=== PATIENT | female | born 1965 | race Caucasian/White ===

== ENCOUNTER 2018-05-22 14:17 | Inpatient (IN) | payer OTHER ==
[~2018-05-22] VITALS: Ht 160 cm; Wt 105.4 kg
[2018-05-22] MEDS ORDERED: Isovue-300 100ml vial INJ PRN (14:45)
[2018-05-22] MEDS ORDERED: Vancomycin 1.5gm/D5W 250ml 250 ML IVPB ONE (14:45)
--- NOTE | 2018-05-22 14:59 | Emergency Room Report ---
History of Present Illness General Chief Complaint: Skin Rash/Abscess Source: Patient Present Illness HPI 52-year-old female presents ED for evaluation. Patient was referred here by PMD Dr. Harris. Patient states there is facial swelling and pain for last 2 days. States there was a small pimple on her face that started spreading. States pain is dull, 6 out of 10, nonradiating. Denies fevers or chills. Denies headache. Patient states that approximately one month ago she had surgery to her neck. Done at outpatient center. Patient had follow-up today with the surgeon area states there is some minimal redness at the surgical site. Was started on Cipro. Denies neck stiffness. No other aggravating relieving factors. Denies any other associated symptoms Allergies: Coded Allergies: ADHESIVE TAPE (Verified Allergy, Unknown, 05/22/18) CODEINE (Verified Allergy, Unknown, 05/22/18) LEVOFLOXACIN (Verified Allergy, Unknown, 05/22/18) MORPHINE (Verified Allergy, Unknown, 05/22/18) Patient History Past Medical History: none Past Surgical History: none Pertinent Family History: none Social History: Denies: smoking, alcohol use, drug use Now: No Immunizations: UTD Reviewed Nursing Documentation: PMH: Agreed; PSxH: Agreed Nursing Documentation-PMH Hx Seizures: Yes Review of Systems All Other Systems: negative except mentioned in HPI Physical Exam Vital Signs Date Time Temp Pulse Resp B/P (MAP) Pulse Ox O2 Delivery O2 Flow Rate FiO2 05/22/18 14:21 98.5 111 20 118/78 95 Room Air 98.4 Sp02 EP Interpretation: reviewed, normal General Appearance: no apparent distress, alert, GCS 15, non-toxic Head: normocephalic Eyes: bilateral eye normal inspection, bilateral eye PERRL ENT: hearing grossly normal, normal pharynx, no angioedema, normal voice, TMs + canals normal Neck: full range of motion, supple, no meningismus, no bony tend, supple/symm/ no masses, other - surgical site anterior neck minimal erythema Respiratory: chest non-tender, lungs clear, normal breath sounds, speaking full sentences Cardiovascular #1: regular rate, rhythm, no edema Gastrointestinal: normal inspection Rectal: deferred Genitourinary: no CVA tenderness Musculoskeletal: normal inspection Neurologic: alert, oriented x3, responsive, motor strength/tone normal, sensory intact, speech normal Psychiatric: judgement/insight normal, memory normal, mood/affect normal, no suicidal/homicidal ideation Skin: other - erythema/induration to upper lip, R side of face. no fluctuance or discharge Lymphatic: normal inspection Medical Decision Making Diagnostic Impression: Primary Impression: Facial cellulitis ER Course Hospital Course 52-year-old female presents to ED with redness, pain, swelling to face Differential diagnoses include: Cellulitis, abscess, rash. Clinical course Patient placed on stretcher. After initial history and physical I ordered labs , blood Cx, UA, IVFs,CT Facial Bones w/ contrast labs reviewed - no leukocytosis, Hb/Hct stable, no electrolyte abnormalities. CT shows evidence of cellulitis, no abscess antibiotics given. Case discussed with Dr Harris and he agreed to accept the patient to his service for further care and support Diagnosis - facial cellulitis Patient admitted to floor in serious condition Labs Test 05/22/18 15:20 White Blood Count 8.3 K/UL (4.8-10.8) Red Blood Count 4.75 M/UL (4.20-5.40) Hemoglobin 12.1 G/DL (12.0-16.0) Hematocrit 38.9 % (37.0-47.0) Mean Corpuscular Volume 82 FL (80-99) Mean Corpuscular Hemoglobin 25.4 PG (27.0-31.0) Mean Corpuscular Hemoglobin Concent 31.1 G/DL (32.0-36.0) Red Cell Distribution Width 14.4 % (11.6-14.8) Platelet Count 173 K/UL (150-450) Mean Platelet Volume 7.1 FL (6.5-10.1) Neutrophils (%) (Auto) 63.0 % (45.0-75.0) Lymphocytes (%) (Auto) 26.8 % (20.0-45.0) Monocytes (%) (Auto) 5.5 % (1.0-10.0) Eosinophils (%) (Auto) 4.1 % (0.0-3.0) Basophils (%) (Auto) 0.6 % (0.0-2.0) Sodium Level 137 MMOL/L (136-145) Potassium Level 3.7 MMOL/L (3.5-5.1) Chloride Level 101 MMOL/L (98-107) Carbon Dioxide Level 26 MMOL/L (21-32) Anion Gap 10 mmol/L (5-15) Blood Urea Nitrogen 10 mg/dL (7-18) Creatinine 0.7 MG/DL (0.55-1.30) Estimat Glomerular Filtration Rate > 60 mL/min (>60) Glucose Level 102 MG/DL (74-106) Lactic Acid Level 0.80 mmol/L (0.4-2.0) Calcium Level 9.1 MG/DL (8.5-10.1) Total Bilirubin 0.4 MG/DL (0.2-1.0) Aspartate Amino Transf (AST/SGOT) 22 U/L (15-37) Alanine Aminotransferase (ALT/SGPT) 22 U/L (12-78) Alkaline Phosphatase 92 U/L (46-116) Total Protein 8.4 G/DL (6.4-8.2) Albumin 3.6 G/DL (3.4-5.0) Globulin 4.8 g/dL Albumin/Globulin Ratio 0.8 (1.0-2.7) CT/MRI/US Diagnostic Results CT/MRI/US Diagnostic Results : Imaging Test Ordered: CT Facial Bones Impression Findings: There is a enhancement and the subcutaneous infiltration in the region of the upper lip. There is no abscess or defined fluid collection identified. Osseous structures appear normal. Paranasal sinuses are clear. Mastoids are clear bilaterally. Orbits are unremarkable. Last Vital Signs Date Time Temp Pulse Resp B/P (MAP) Pulse Ox O2 Delivery O2 Flow Rate FiO2 05/22/18 14:21 98.5 111 20 118/78 95 Room Air 98.4 Status: improved Disposition: ADMITTED INPATIENT Condition: Serious Obdulio Ngo MD May 22, 2018 14:59
[2018-05-22 15:00] VITALS: BP 114/82
[2018-05-22 15:50] LABS: BASOPHILS % (AUTO) 0.6 % (0.0-2.0); EOSINOPHILS % (AUTO) 4.1 % (0.0-3.0); HEMATOCRIT 38.9 % (37.0-47.0); HEMOGLOBIN 12.1 G/DL (12.0-16.0); LYMPHOCYTES % (AUTO) 26.8 % (20.0-45.0); MEAN CORPUSCULAR VOLUME 82 FL (80-99); MONOCYTES % (AUTO) 5.5 % (1.0-10.0); PLATELET COUNT 173 K/UL (150-450); RED BLOOD COUNT 4.75 M/UL (4.20-5.40); RED CELL DISTRIBUTION WIDTH 14.4 % (11.6-14.8); WHITE BLOOD COUNT 8.3 K/UL (4.8-10.8)
[2018-05-22 16:00] LABS: ANION GAP 10 mmol/L (5-15); BLOOD UREA NITROGEN 10 mg/dL (7-18); CALCIUM 9.1 MG/DL (8.5-10.1); CARBON DIOXIDE 26 MMOL/L (21-32); CHLORIDE 101 MMOL/L (98-107); CREATININE 0.7 MG/DL (0.55-1.30); POTASSIUM 3.7 MMOL/L (3.5-5.1); SODIUM 137 MMOL/L (136-145)
[2018-05-22 16:04] LABS: ALANINE AMINOTRANSFERASE 22 U/L (12-78); ALBUMIN 3.6 G/DL (3.4-5.0); ALBUMIN/GLOBULIN RATIO 0.8 (1.0-2.7); ALKALINE PHOSPHATASE 92 U/L (46-116); ASPARTATE AMINO TRANSFERASE 22 U/L (15-37); BILIRUBIN,TOTAL 0.4 MG/DL (0.2-1.0)
[2018-05-22] MEDS ORDERED: DiphenhydrAMINE 50mg/ml Inj IVP ONE (16:15)
[2018-05-22] MEDS ORDERED: Morphine Sulfate 4mg/ml Inj (IV/IM USE ONLY) IVP ONE (16:15)
--- NOTE | 2018-05-22 16:47 | Diagnostic Imaging Report ---
Indication: Facial swelling and pain. Concern for infection/abscess Technique: Continuous helical transaxial imaging of the maxillofacial structures obtained after intravenous contrast administration. Coronal 2-D reformats were also obtained. Study obtained in a Siemens sensation [address] Total Dose length Product (DLP): 614.[address] Dose Index Volume (CTDIvol): 28.19 mGy Comparison: None Findings: There is a enhancement and the subcutaneous infiltration in the region of the upper lip. There is no abscess or defined fluid collection identified. Osseous structures appear normal. Paranasal sinuses are clear. Mastoids are clear bilaterally. Orbits are unremarkable. IMPRESSION: Soft tissue swelling and enhancement involving the upper lip consistent with cellulitis. No abscess.
[2018-05-22] MEDS ORDERED: KEPPRA500 M4 ORAL (16:57)
[2018-05-22 17:13] VITALS: BP 109/75
[2018-05-22] MEDS ORDERED: Tylenol #3 tab (300mg/30mg) ORAL PRN (17:45)
[2018-05-22] MEDS ORDERED: KEPPRA100 MG/1 M IV (17:59)
[2018-05-22] MEDS ORDERED: PANTOPRAZOLE SO40 MG ORAL (17:59)
[2018-05-22] MEDS ORDERED: ACID CONTROL150 MG ORAL (17:59)
[2018-05-22] MEDS ORDERED: SINGULAIR10 MG ORAL (17:59)
[2018-05-22] MEDS ORDERED: SYMBICORT2 PUFF1 INH (17:59)
[2018-05-22] MEDS ORDERED: CARVEDILOL6.25 MG ORAL (17:59)
[2018-05-22] MEDS ORDERED: KEPPRA XR500 MG ORAL (17:59)
[2018-05-22] MEDS ORDERED: GABAPENTIN600 MG ORAL (17:59)
[2018-05-22] MEDS ORDERED: ZOLOFT50 MG ORAL (17:59)
[2018-05-22] MEDS ORDERED: valACYclovir HCL 500mg tab ORAL SCH (18:00)
[2018-05-22] MEDS ORDERED: traMADol 50mg tab ORAL PRN ×2 (18:50→21:36)
[2018-05-22 20:00] VITALS: BP 105/70
[2018-05-22] MEDS: Piperacillin/Tazobactam 3.375 GM in D5W 110 ML IVPB SCH (20:00)
[2018-05-22] MEDS ORDERED: Carvedilol 6.25mg Tab ORAL SCH (20:00)
[2018-05-22] MEDS: valACYclovir HCL 500mg tab ORAL SCH (20:45)
[2018-05-22] MEDS: Montelukast 10mg tablet ORAL SCH (20:45)
[2018-05-22] MEDS: Heparin 5000 units/ml inj SUBQ SCH (20:51)
[2018-05-22] MEDS ORDERED: HYDROcodone/Acetamin 10/325 tab ORAL PRN (21:30)
[2018-05-22] MEDS: HYDROcodone/Acetamin 10/325 tab ORAL PRN (21:52)
[2018-05-23] VITALS: BP 104/64
[2018-05-23] MEDS: HYDROcodone/Acetamin 10/325 tab ORAL PRN ×5 (02:20→20:35)
[2018-05-23] MEDS ORDERED: Vancomycin 1gm/D5W 275ml IVPB SCH ×2 (03:30)
[2018-05-23 04:00] VITALS: BP 92/76
[2018-05-23] MEDS: Piperacillin/Tazobactam 3.375 GM in D5W 110 ML IVPB SCH ×2 (04:00→12:41)
[2018-05-23 08:00] VITALS: BP 107/81
[2018-05-23] MEDS: Carvedilol 6.25mg Tab ORAL SCH ×2 (08:51→17:40)
[2018-05-23] MEDS: valACYclovir HCL 500mg tab ORAL SCH (08:51)
[2018-05-23] MEDS: Sertraline 50mg tab ORAL SCH (08:51)
[2018-05-23] MEDS: Heparin 5000 units/ml inj SUBQ SCH ×2 (08:57→20:37)
[2018-05-23 11:52] VITALS: BP 103/72
--- NOTE | 2018-05-23 13:49 | History and Physical ---
History of Present Illness General Date patient seen: May 23, 2018 Reason for Hospitalization: Skin Rash/Abscess Present Illness HPI this is anunfortuante female s/p ACDDF doing ok came to office yesterday had facialswelling and abcess. she was send to ER to be eval and subsequently was admmited for further eval She has facial abcess had ct no abcess she is slihgtly better she wa admmited due to the fact that she has recent aCDF adn at risk of seeding the hardware. PMH: COPD AORTIC BICUSPID VALVE s/p valve replacement on off anticoagulation obesity polyarthraogai cervical radiculitis s/p fusion gerd pre diabetes with hgba1c 6.2 ? pseudo seizure PSH: blasdder ligft cholecystectomy hysterectomy left knee surgery Allergies: Coded Allergies: VANCOMYCIN (Verified Allergy, Intermediate, Itching, 05/23/18) ADHESIVE TAPE (Verified Allergy, Unknown, 05/22/18) CODEINE (Verified Allergy, Unknown, 05/22/18) LEVOFLOXACIN (Verified Allergy, Unknown, 05/22/18) MORPHINE (Verified Allergy, Unknown, 05/22/18) Medication History Scheduled Budesonide/Formoterol Fumarate (Symbicort 160-4.5 Mcg Inhaler), 2 PUFFS INH BID, (Reported) Carvedilol* (Carvedilol*), 6.25 MG ORAL EVERY 12 HOURS, (Reported) Gabapentin* (Gabapentin*), 600 MG ORAL FOUR TIMES A DAY, (Reported) Levetiracetam (Keppra), 500 MG ORAL EVERY 12 HOURS, (Reported) Levetiracetam (Keppra Xr), 500 MG ORAL DAILY, (Reported) Levetiracetam (Keppra), 500 MG IV BID, (Reported) Montelukast Sodium* (Singulair*), 10 MG ORAL HS, (Reported) Pantoprazole* (Pantoprazole*), 40 MG ORAL DAILY, (Reported) Ranitidine Hcl* (Acid Control*), 300 MG ORAL BEDTIME, (Reported) Sertraline Hcl* (Zoloft*), 50 MG ORAL DAILY, (Reported) Patient History History Provided By: Patient Healthcare decision maker N Resuscitation status Full Code Advanced Directive on File Review of Systems Constitutional: Reports: weakness Eye: Reports: no symptoms Cardiovascular: Reports: no symptoms Musculoskeletal: Reports: other - arthralgai Physical Exam General Appearance: other - sitting on the bed HEENT: normocephalic, atraumatic, other - upper lip swelling Neck: other - wellhealing scar Respiratory/Chest: lungs clear Cardiovascular/Chest: normal rate, regular rhythm, no JVD Abdomen: soft Extremities: non-tender Last 24 Hour Vital Signs Date Time Temp Pulse Resp B/P (MAP) Pulse Ox O2 Delivery O2 Flow Rate FiO2 05/23/18 11:52 98.2 105 20 103/72 (82) 93 98.2 05/23/18 11:09 98.5 05/23/18 10:39 98.5 05/23/18 10:35 108 20 96 Room Air 21 05/23/18 10:34 108 20 96 Room Air 21 05/23/18 09:00 Nasal Cannula 2.0 05/23/18 08:51 105 107/81 05/23/18 08:00 98.5 105 18 107/81 (90) 95 98.5 05/23/18 04:00 97.9 101 20 92/76 (81) 94 97.9 05/23/18 00:00 98.5 108 18 104/64 (77) 95 98.5 05/22/18 21:00 Room Air 05/22/18 20:46 97 109/75 05/22/18 20:00 98.1 109 20 105/70 (82) 95 98.1 05/22/18 17:13 98.6 97 19 109/75 (86) 97 98.6 05/22/18 16:54 98.4 96 14 132/66 97 Room Air 209.1 05/22/18 16:36 Room Air 05/22/18 16:12 98.4 05/22/18 15:00 98.4 92 15 114/82 96 Room Air 98.4 05/22/18 14:21 98.5 111 20 118/78 95 Room Air 98.4 Intake and Output 05/22/18 05/23/18 19:00 07:00 Intake Total 360 ml Balance 360 ml Intake Oral 360 ml # Voids 3 Laboratory Tests Test 05/22/18 15:20 White Blood Count 8.3 K/UL (4.8-10.8) Red Blood Count 4.75 M/UL (4.20-5.40) Hemoglobin 12.1 G/DL (12.0-16.0) Hematocrit 38.9 % (37.0-47.0) Mean Corpuscular Volume 82 FL (80-99) Mean Corpuscular Hemoglobin 25.4 PG (27.0-31.0) L Mean Corpuscular Hemoglobin Concent 31.1 G/DL (32.0-36.0) L Red Cell Distribution Width 14.4 % (11.6-14.8) Platelet Count 173 K/UL (150-450) Mean Platelet Volume 7.1 FL (6.5-10.1) Neutrophils (%) (Auto) 63.0 % (45.0-75.0) Lymphocytes (%) (Auto) 26.8 % (20.0-45.0) Monocytes (%) (Auto) 5.5 % (1.0-10.0) Eosinophils (%) (Auto) 4.1 % (0.0-3.0) H Basophils (%) (Auto) 0.6 % (0.0-2.0) Sodium Level 137 MMOL/L (136-145) Potassium Level 3.7 MMOL/L (3.5-5.1) Chloride Level 101 MMOL/L (98-107) Carbon Dioxide Level 26 MMOL/L (21-32) Anion Gap 10 mmol/L (5-15) Blood Urea Nitrogen 10 mg/dL (7-18) Creatinine 0.7 MG/DL (0.55-1.30) Estimat Glomerular Filtration Rate > 60 mL/min (>60) Glucose Level 102 MG/DL (74-106) Lactic Acid Level 0.80 mmol/L (0.4-2.0) Calcium Level 9.1 MG/DL (8.5-10.1) Total Bilirubin 0.4 MG/DL (0.2-1.0) Aspartate Amino Transf (AST/SGOT) 22 U/L (15-37) Alanine Aminotransferase (ALT/SGPT) 22 U/L (12-78) Alkaline Phosphatase 92 U/L (46-116) Total Protein 8.4 G/DL (6.4-8.2) H Albumin 3.6 G/DL (3.4-5.0) Globulin 4.8 g/dL Albumin/Globulin Ratio 0.8 (1.0-2.7) L Height (Feet): 5 Height (Inches): 3.00 Weight (Pounds): 225 Medications Current Medications Medications (Trade) Dose Ordered Sig/Yessica Route PRN Reason Start Time Stop Time Status Last Admin Dose Admin Acetaminophen (Tylenol) 650 mg Q6H PRN ORAL Mild Pain/Temp > 100.5 05/22/18 17:52 06/21/18 17:51 05/22/18 20:53 Acetaminophen/ Hydrocodone Bitart ([place] 10/325) 1 tab Q4H PRN ORAL Severe Pain (Pain Scale 7-10) 05/22/18 21:37 05/29/18 21:36 05/23/18 10:39 Budesonide/ Formoterol Fumarate (Symbicort 160/ 4.5) 2 puff BID INH 05/22/18 20:00 06/21/18 19:59 05/23/18 10:32 Carvedilol (Coreg) 6.25 mg BIDPC ORAL 05/23/18 09:00 06/22/18 08:59 05/23/18 08:51 Diphenhydramine HCl (Benadryl) 50 mg Q6H PRN ORAL Itching 05/23/18 06:00 06/22/18 05:59 05/23/18 12:40 Gabapentin (Neurontin) 600 mg FOUR TIMES A DAY ORAL 05/22/18 18:00 06/21/18 17:59 05/23/18 12:40 Heparin Sodium (Porcine) (Heparin 5000 units/ml) 5,000 units EVERY 12 HOURS SUBQ 05/22/18 21:00 06/21/18 20:59 05/23/18 08:57 Iopamidol (Isovue-300 100ml) 100 ml NOW PRN INJ Radiology Procedure 05/22/18 14:45 05/24/18 14:45 Levetiracetam (Keppra) 500 mg EVERY 12 HOURS ORAL 05/22/18 21:00 06/21/18 20:59 05/23/18 08:51 Montelukast Sodium (Singulair) 10 mg BEDTIME ORAL 05/22/18 21:00 06/21/18 20:59 05/22/18 20:45 Pantoprazole (Protonix) 40 mg DAILY ORAL 05/23/18 09:00 06/22/18 08:59 05/23/18 08:51 Piperacillin Sod/ Tazobactam Sod 3.375 gm/Dextrose 110 ml @ 27.5 mls/hr Q8H IVPB 05/22/18 20:00 05/29/18 19:59 05/23/18 12:41 Sertraline HCl (Zoloft) 50 mg DAILY ORAL 05/23/18 09:00 06/22/18 08:59 05/23/18 08:51 Tramadol HCl (Ultram) 50 mg Q6H PRN ORAL Moderate Pain (Pain Scale 4-6) 05/22/18 21:36 05/29/18 21:35 Valacyclovir HCl (Valtrex) 1,000 mg Q12HR ORAL 05/22/18 21:00 06/21/18 20:59 05/23/18 08:51 Assessment/Plan Status Narrative FACICAL CELLULISTIS no abces in the ct receent acdf historyof valvular heart disease Assessment/Plan antribitoic given ? redmen syndrome with vanco will get id to recommend empiric broad spectrum antibiotic pt ot eval and follow has aortic valve replced with infeciton will get cardiology to seeher. Faustino Harris MD May 23, 2018 13:49
--- NOTE | 2018-05-23 15:36 | Consultation ---
Consult Note Consult Note # [id number] Parviz So MD May 23, 2018 15:36
[2018-05-23 15:39] VITALS: BP 110/71
--- NOTE | 2018-05-23 15:44 | Consultation ---
Consult Note Consult Note Chart reviewed, Patient examined. Full note to follow. Imp: 1. H/O Bicuspid aortic valve, s/p AVR (Bioprosthetic) in 2017 2. S/P R knee surgery 2016 3. S/p C spine surgery 04/21/18 4. Obesity 5. Open wound of the C spine surgery with drainage 6. Upper lip and face cellulitis 7. Allergic reaction to Vanco Plan: Wound culture IV ABx as per ID 2D Echo /Doppler to assess aortic valve and r/o vegetation Monitor progress of cellulitis. Mark Bee MD May 23, 2018 15:43
[2018-05-23] MEDS: DAPTOmycin 400 MG in NS 55 ML IV SCH (16:54)
[2018-05-23 20:24] VITALS: BP 123/82
[2018-05-23] MEDS: Montelukast 10mg tablet ORAL SCH (20:35)
[2018-05-24] VITALS (9 sets, daily range): BP systolic 103–130; BP diastolic 69–85
--- NOTE | 2018-05-24 01:00 | Consultation ---
DATE OF CONSULTATION: 05/23/2018 INFECTIOUS DISEASE CONSULTATION CONSULTING PHYSICIAN: Parviz So M.D. REQUESTING PHYSICIAN: Faustino Harris M.D. REASON FOR CONSULTATION: Facial cellulitis. HISTORY OF PRESENT ILLNESS: The patient is a 52-year-old female with a recent history of anterior approach diskectomy of the neck about a month ago, who was admitted to this medical center for swelling and tenderness of upper lip. The patient noticed a pimple in the area that squeezes and few days later this got worse with swelling and tenderness to the area. The patient is admitted with inpatient facial cellulitis/abscess. Infectious Disease consultation has been requested for further evaluation of the patient and antibiotic management. PAST MEDICAL HISTORY: 1. COPD. 2. History of neck surgery, anterior approach neck discectomy. 3. History of aortic bicuspid valve replacement. 4. Obesity. 5. History of diabetes. 6. History of cholecystectomy. 7. History of hysterectomy. 8. History of left knee surgery. MEDICATIONS: IV Zosyn. ALLERGIES: Adhesive tape, codeine, Levaquin, morphine, and vancomycin. FAMILY HISTORY: Not contributing. SOCIAL HISTORY: No history of alcohol or drug abuse. REVIEW OF SYSTEMS: A 10-point review was done, except what was mentioned above has been negative. PHYSICAL EXAMINATION: VITAL SIGNS: Temperature 98.2, blood pressure 133/72, pulse 86, and respiratory rate 18. HEENT: No pale conjunctivae. No icterus. Mouth, the patient has swelling over the upper lip, tender, no purulent discharge. NECK: No lymphadenopathy. Incision site is healing. CHEST: Bilateral air entry. HEART: S1 and S2. ABDOMEN: Soft and nontender. EXTREMITIES: No cyanosis at this time. NEUROLOGIC: Awake. LABORATORY AND DIAGNOSTIC DATA: WBC 7.3, hemoglobin 12, and platelets of 173,000. BUN 10 and creatinine 0.7. ALT and AST are unremarkable. Facial bone CT, soft tissue enhancement involving the upper lip consistent with cellulitis. No discrete abscess. ASSESSMENT: The patient is a 52-year-old female with multiple medical problems, who has, 1. Facial cellulitis due to small upper lip abscess (most likely due to Staphylococcus). 2. Afebrile. 3. Normal white blood cells. PLAN: 1. We will start the patient on intravenous daptomycin (the patient has allergy to daptomycin and has ). 2. Hold Zosyn (doubt gram negatives has a role). 3. Monitor CBC and BMP. 4. Monitor the patient's clinical improvement. 5. Monitor blood culture. 6. Based on the patient's clinical course and laboratories, we will do further recommendations. Thank you, Dr. Harris, for allowing me to participate in the care of this patient. I will follow the patient with you during this hospitalization. Parviz So M.D. DR: CHAUNCEY JOB#: [id number] CC:
[2018-05-24] MEDS: HYDROcodone/Acetamin 10/325 tab ORAL PRN ×5 (01:25→19:37)
[2018-05-24] MEDS: Carvedilol 6.25mg Tab ORAL SCH ×2 (08:34→18:13)
[2018-05-24] MEDS: Sertraline 50mg tab ORAL SCH (08:34)
[2018-05-24] MEDS: Heparin 5000 units/ml inj SUBQ SCH ×2 (08:37→21:04)
[2018-05-24] MEDS ORDERED: LORazepam Inj 2mg/ml 1ml IV PRN ×2 (15:00→18:45)
--- NOTE | 2018-05-24 17:09 | Infectious Diseases Prog Note ---
Assessment/Plan Assessment/Plan A: The patient is a 52-year-old female with a Facial cellulitis due to small upper lip abscess (most likely due to Staphylococcus) Neck Wnd Cx : Staph A ( Colonizer) Afebrile. Normal white blood cells. COPD. History of neck surgery, anterior approach neck discectomy. History of aortic bicuspid valve replacement. Obesity. History of diabetes. History of cholecystectomy. History of hysterectomy. History of left knee surgery. PLAN: Cont intravenous daptomycin d# 2 (allergy to vancomycin and DDI : Zyvox) Sp Zosyn d# 1 Monitor CBC and BMP Monitor the patient's clinical improvement. Monitor blood culture. may need I/D if abscess progresses Subjective Allergies: Coded Allergies: VANCOMYCIN (Verified Allergy, Intermediate, Itching, 05/23/18) ADHESIVE TAPE (Verified Allergy, Unknown, 05/22/18) CODEINE (Verified Allergy, Unknown, 05/22/18) LEVOFLOXACIN (Verified Allergy, Unknown, 05/22/18) MORPHINE (Verified Allergy, Unknown, 05/22/18) Subjective Afebrile Objective Vital Signs Last 24 Hour Vital Signs Date Time Temp Pulse Resp B/P (MAP) Pulse Ox O2 Delivery O2 Flow Rate FiO2 05/24/18 16:00 97.6 105 18 115/85 (95) 95 05/24/18 15:46 97.6 05/24/18 14:30 103 20 110/79 (89) 97 05/24/18 14:25 84 18 105/73 (84) 97 05/24/18 14:18 82 16 103/71 (82) 98 05/24/18 12:00 97.1 99 18 122/78 (93) 94 97.1 05/24/18 10:47 98.4 05/24/18 09:00 Room Air 05/24/18 08:34 100 110/69 05/24/18 08:24 83 18 99 Room Air 21 05/24/18 08:21 83 16 99 Room Air 21 05/24/18 08:00 98.4 100 18 110/69 (83) 93 98.4 05/24/18 04:00 98.4 84 18 130/80 (97) 95 98.4 05/24/18 00:28 98.1 78 18 127/77 (94) 95 98.1 05/23/18 21:00 Nasal Cannula 2.0 10/23/18 20:24 98.3 80 17 123/82 (96) 96 98.3 05/23/18 19:27 114 20 95 Room Air 21 05/23/18 19:25 111 18 93 Room Air 21 05/23/18 17:40 91 110/71 Height (Feet): 5 Height (Inches): 3.00 Weight (Pounds): 232 HEENT: anicteric, other - upper lip abscess +, no drainage Respiratory/Chest: no respiratory distress Cardiovascular: regular rhythm Microbiology Date/Time Source Procedure Growth Status 05/22/18 15:35 Blood Blood Culture - Preliminary NO GROWTH AFTER 24 HOURS Resulted 05/22/18 15:20 Blood Blood Culture - Preliminary NO GROWTH AFTER 24 HOURS Resulted 05/22/18 20:10 Nasal Nares MRSA Culture - Final Staphylococcus Aureus - Mrsa Complete 05/23/18 15:31 Neck Gram Stain - Final Resulted 05/23/18 15:31 Wound Culture - Preliminary Staphylococcus Aureus Resulted 05/22/18 20:10 Rectum VRE Culture Pending Resulted 05/22/18 20:10 Rectum - Preliminary Resulted Current Medications Medications (Trade) Dose Ordered Sig/Yessica Route PRN Reason Start Time Stop Time Status Last Admin Dose Admin Acetaminophen (Tylenol) 650 mg Q6H PRN ORAL Mild Pain/Temp > 100.5 05/22/18 17:52 06/21/18 17:51 05/22/18 20:53 Acetaminophen/ Hydrocodone Bitart ([place] 10/325) 1 tab Q4H PRN ORAL Severe Pain (Pain Scale 7-10) 05/22/18 21:37 05/29/18 21:36 05/24/18 15:16 Budesonide/ Formoterol Fumarate (Symbicort 160/ 4.5) 2 puff BID INH 05/22/18 20:00 06/21/18 19:59 05/24/18 08:21 Carvedilol (Coreg) 6.25 mg BIDPC ORAL 05/23/18 09:00 06/22/18 08:59 05/24/18 08:34 Daptomycin 400 mg/ Sodium Chloride 55 ml @ 100 mls/hr Q24H IV 05/23/18 17:00 05/30/18 16:59 05/23/18 16:54 Diphenhydramine HCl (Benadryl) 50 mg Q6H PRN ORAL Itching 05/23/18 06:00 06/22/18 05:59 05/24/18 01:32 Famotidine (Pepcid) 20 mg Q24H ORAL 05/23/18 22:00 06/22/18 21:59 05/23/18 21:39 Gabapentin (Neurontin) 600 mg FOUR TIMES A DAY ORAL 05/22/18 18:00 06/21/18 17:59 05/24/18 13:07 Heparin Sodium (Porcine) (Heparin 5000 units/ml) 5,000 units EVERY 12 HOURS SUBQ 05/22/18 21:00 06/21/18 20:59 05/24/18 08:37 Levetiracetam (Keppra) 1,000 mg Q12HR ORAL 05/24/18 21:00 06/23/18 20:59 Lorazepam (Ativan 2mg/ml 1ml) 1 mg Q4H PRN IV For Seizures 05/24/18 15:00 05/31/18 14:59 Montelukast Sodium (Singulair) 10 mg BEDTIME ORAL 05/22/18 21:00 06/21/18 20:59 05/23/18 20:35 Pantoprazole (Protonix) 40 mg DAILY ORAL 05/23/18 09:00 06/22/18 08:59 05/24/18 08:34 Sertraline HCl (Zoloft) 50 mg DAILY ORAL 05/23/18 09:00 06/22/18 08:59 05/24/18 08:34 Tramadol HCl (Ultram) 50 mg Q6H PRN ORAL Moderate Pain (Pain Scale 4-6) 05/22/18 21:36 05/29/18 21:35 Parviz So MD May 24, 2018 17:09
--- NOTE | 2018-05-24 18:13 | Cardiology Report ---
APPROVED REPORT EXAM: Two-dimensional and M-mode echocardiogram with Doppler and color Doppler. INDICATION [place] M-Mode DIMENSIONS IVSd1.1 (0.7-1.1cm)Left Atrium (MM)3.5 (1.6-4.0cm) LVDd3.5 (3.5-5.6cm)Aortic Root3.4 (2.0-3.7cm) PWd1.5 (0.7-1.1cm)Aortic Cusp Exc.1.5 (1.5-2.0cm) LVDs1.8 (2.5-4.0cm) PWs2.2 cm Technically difficult study due to poor acoustic windows. Study quality precludes accurate assessment of regional wall motion. Normal left ventricular chamber size, systolic function and wall motion. Left ventricular ejection fraction estimated to be 65 %. Mild left ventricular hypertrophy. No evidence of pericardial effusion. All other cardiac chamber sizes are within normal limits. Bio-prosthetic aortic valve with adequate cusp excursion. Moderately thickened mitral valve leaflets with normal excursion. Echogenic material seen on posterior sukhjinder valve, cannot rule out vegitation. Mildly mitral annulus and aortic root calcification. Normal pulmonic valve structure. Normal tricuspid valve structure. IVC dilated at 2.4 cm with physiological collapse. A color flow and spectral Doppler study was performed and revealed: No aortic insufficiency. Peak aortic valve gradient of 26 mmHg and a mean of 17 mmHg. Aortic valve repair noted. Trace mitral regurgitation. Mitral inflow velocities indicates possible pseudo normalization pattern implying significant left ventricular diastolic dysfunction (Grade II). Mild tricuspid regurgitation. Tricuspid systolic velocities suggests peak right ventricular systolic pressure of 32 mmHg. Trace pulmonic regurgitation present.
[2018-05-24] MEDS: DAPTOmycin 400 MG in NS 55 ML IV SCH ×2 (18:16→19:37)
--- NOTE | 2018-05-24 18:44 | Cardiology Progress Note ---
Assessment/Plan Status Narrative 1. H/O Bicuspid aortic valve, s/p AVR (Bioprosthetic) in 2017 2. S/P R knee surgery 2017 3. S/p C spine surgery 04/21/18 4. Obesity 5. Open wound of the C spine surgery with drainage- appears improved 6. Upper lip and face cellulitis- cannor r/o HSV 7. Allergic reaction to Vanco 8. Focal seizures- Etiology unclear 9. MRSA- nares Assessment/Plan Continue ABx. as per ID. Ativan PRN Sz precautions. Cardiac status stable. Subjective ROS Limited/Unobtainable: No Subjective Patient experienced focal seizure just prior to exam. Unable to provide ROS or offer any complaints. Objective Last 24 Hour Vital Signs Date Time Temp Pulse Resp B/P (MAP) Pulse Ox O2 Delivery O2 Flow Rate FiO2 05/24/18 18:13 105 115/85 05/24/18 16:00 97.6 105 18 115/85 (95) 95 05/24/18 15:46 97.6 05/24/18 14:30 103 20 110/79 (89) 97 05/24/18 14:25 84 18 105/73 (84) 97 05/24/18 14:18 82 16 103/71 (82) 98 05/24/18 12:00 97.1 99 18 122/78 (93) 94 97.1 05/24/18 10:47 98.4 05/24/18 09:00 Room Air 05/24/18 08:34 100 110/69 05/24/18 08:24 83 18 99 Room Air 21 05/24/18 08:21 83 16 99 Room Air 21 05/24/18 08:00 98.4 100 18 110/69 (83) 93 98.4 05/24/18 04:00 98.4 84 18 130/80 (97) 95 98.4 05/24/18 00:28 98.1 78 18 127/77 (94) 95 98.1 05/23/18 21:00 Nasal Cannula 2.0 05/23/18 20:24 98.3 80 17 123/82 (96) 96 98.3 05/23/18 19:27 114 20 95 Room Air 21 05/23/18 19:25 111 18 93 Room Air 21 General Appearance: lethargic EENT: other - Upper lip with swelling and erythema Neck: other - incision site appears dry w.o. drainage Cardiovascular: normal rate, regular rhythm Respiratory/Chest: lungs clear Abdomen: non tender, soft Extremities: non-tender, normal inspection, no calf tenderness, no swelling Intake and Output 05/23/18 05/24/18 19:00 07:00 Intake Total 908.0 ml 360 ml Balance 908.0 ml 360 ml Intake Oral 798 ml 360 ml IV Total 110.0 ml # Voids 4 # Bowel Movements 1 2D Echo: Nl LV WM, EF. Aortic valve with good function. MV calcification. Microbiology Date/Time Source Procedure Growth Status 05/22/18 15:35 Blood Blood Culture - Preliminary NO GROWTH AFTER 24 HOURS Resulted 05/22/18 15:20 Blood Blood Culture - Preliminary NO GROWTH AFTER 24 HOURS Resulted 05/22/18 20:10 Nasal Nares MRSA Culture - Final Staphylococcus Aureus - Mrsa Complete 05/23/18 15:31 Neck Gram Stain - Final Resulted 05/23/18 15:31 Wound Culture - Preliminary Staphylococcus Aureus Resulted 05/22/18 20:10 Rectum VRE Culture Pending Resulted 05/22/18 20:10 Rectum - Preliminary Resulted Mark Bee MD May 24, 2018 18:44
[2018-05-24] MEDS ORDERED: traMADol 50mg tab ORAL PRN (18:46)
--- NOTE | 2018-05-24 19:59 | General Progress Note ---
Subjective Date patient seen: May 24, 2018 Time patient seen: 19:57 HEENT: Reports: no symptoms Allergies: Coded Allergies: VANCOMYCIN (Verified Allergy, Intermediate, Itching, 05/23/18) ADHESIVE TAPE (Verified Allergy, Unknown, 05/22/18) CODEINE (Verified Allergy, Unknown, 05/22/18) LEVOFLOXACIN (Verified Allergy, Unknown, 05/22/18) MORPHINE (Verified Allergy, Unknown, 05/22/18) Subjective patient had a seizure on keppra nad neurontin not doing well no fever now has had antibiotic facical swelling better Objective Last 24 Hour Vital Signs Date Time Temp Pulse Resp B/P (MAP) Pulse Ox O2 Delivery O2 Flow Rate FiO2 05/24/18 19:12 99 Nasal Cannula 2.0 28 05/24/18 19:12 Nasal Cannula 2.0 28 05/24/18 19:11 Nasal Cannula 2.0 28 05/24/18 19:11 Nasal Cannula 2.0 28 05/24/18 18:13 105 115/85 05/24/18 16:00 97.6 105 18 115/85 (95) 95 05/24/18 15:46 97.6 05/24/18 14:30 103 20 110/79 (89) 97 05/24/18 14:25 84 18 105/73 (84) 97 05/24/18 14:18 82 16 103/71 (82) 98 05/24/18 12:00 97.1 99 18 122/78 (93) 94 97.1 05/24/18 10:47 98.4 05/24/18 09:00 Room Air 05/24/18 08:34 100 110/69 05/24/18 08:24 83 18 99 Room Air 21 05/24/18 08:21 83 16 99 Room Air 21 05/24/18 08:00 98.4 100 18 110/69 (83) 93 98.4 05/24/18 04:00 98.4 84 18 130/80 (97) 95 98.4 05/24/18 00:28 98.1 78 18 127/77 (94) 95 98.1 05/23/18 21:00 Nasal Cannula 2.0 05/23/18 20:24 98.3 80 17 123/82 (96) 96 98.3 Intake and Output 05/23/18 05/24/18 19:00 07:00 Intake Total 908.0 ml 360 ml Balance 908.0 ml 360 ml Intake Oral 798 ml 360 ml IV Total 110.0 ml # Voids 4 # Bowel Movements 1 Height (Feet): 5 Height (Inches): 3.00 Weight (Pounds): 232 Objective NAD no JVD upper lip has a swelling and erythema n jvd cta soft facial cellulitis s/p seizure traumatic brain injury??? antibiotic and follow increase keppra 1 gram bid adn on neurontin antibiotic per id. Faustino Harris MD May 24, 2018 19:59
[2018-05-24] MEDS: Montelukast 10mg tablet ORAL SCH (21:05)
[2018-05-25] VITALS: BP 112/66
[2018-05-25 04:00] VITALS: BP 108/70
[2018-05-25] MEDS: HYDROcodone/Acetamin 10/325 tab ORAL PRN ×5 (04:45→21:38)
[2018-05-25 07:55] VITALS: BP 112/54
[2018-05-25] MEDS: Sertraline 50mg tab ORAL SCH (08:11)
[2018-05-25] MEDS: Carvedilol 6.25mg Tab ORAL SCH ×2 (08:13→17:33)
[2018-05-25] MEDS: Heparin 5000 units/ml inj SUBQ SCH ×2 (08:15→20:26)
[2018-05-25 12:00] VITALS: BP 106/58
[2018-05-25] MEDS: LORazepam Inj 2mg/ml 1ml IV PRN (12:56)
--- NOTE | 2018-05-25 14:12 | General Progress Note ---
Assessment/Plan Status Narrative facial cellulitis positive for mrsa on antibiotc has ahd acdf will get mri of the neck will folloow Subjective Date patient seen: May 25, 2018 Time patient seen: 14:09 Constitutional: Reports: no symptoms HEENT: Reports: no symptoms Cardiovascular: Reports: no symptoms Respiratory: Reports: no symptoms Allergies: Coded Allergies: VANCOMYCIN (Verified Allergy, Intermediate, Itching, 05/23/18) ADHESIVE TAPE (Verified Allergy, Unknown, 05/22/18) CODEINE (Verified Allergy, Unknown, 05/22/18) LEVOFLOXACIN (Verified Allergy, Unknown, 05/22/18) MORPHINE (Verified Allergy, Unknown, 05/22/18) Subjective patient had seizure no fever no chills facical swelling is less no palpitation Objective Last 24 Hour Vital Signs Date Time Temp Pulse Resp B/P (MAP) Pulse Ox O2 Delivery O2 Flow Rate FiO2 05/25/18 12:00 98.1 88 20 106/58 (74) 97 05/25/18 12:00 98 05/25/18 09:31 98 Room Air 21 05/25/18 09:31 Room Air 21 05/25/18 09:30 100 20 98 Room Air 21 05/25/18 09:28 101 20 98 Room Air 21 05/25/18 09:00 Room Air 05/25/18 08:13 100 112/54 05/25/18 08:00 106 05/25/18 07:55 98.2 100 19 112/54 (73) 96 05/25/18 04:00 90 05/25/18 04:00 98.3 92 18 108/70 (83) 94 05/25/18 00:00 90 05/25/18 00:00 98.8 90 19 112/66 (81) 95 05/24/18 21:00 Room Air 05/24/18 20:56 100.5 05/24/18 20:00 113 05/24/18 20:00 100.5 105 19 125/77 (93) 99 05/24/18 19:12 99 Nasal Cannula 2.0 28 05/24/18 19:12 Nasal Cannula 2.0 28 05/24/18 19:11 Nasal Cannula 2.0 28 05/24/18 19:11 Nasal Cannula 2.0 28 05/24/18 18:13 105 115/85 05/24/18 16:00 97.6 105 18 115/85 (95) 95 05/24/18 15:46 97.6 05/24/18 14:30 103 20 110/79 (89) 97 05/24/18 14:25 84 18 105/73 (84) 97 05/24/18 14:18 82 16 103/71 (82) 98 Intake and Output 05/24/18 05/25/18 19:00 07:00 Intake Total 1280 ml 240 ml Balance 1280 ml 240 ml Intake Oral 1280 ml 240 ml # Voids 4 3 # Bowel Movements 1 Height (Feet): 5 Height (Inches): 3.00 Weight (Pounds): 232 General Appearance: WD/WN EENT: other - facial swelling is less Neck: other - wound is dry Cardiovascular: normal rate, regular rhythm Respiratory/Chest: lungs clear Abdomen: soft Objective NAD no JVD upper lip has a swelling and erythema n jvd cta soft Faustino Harris MD May 25, 2018 14:12
[2018-05-25 16:00] VITALS: BP 111/76
--- NOTE | 2018-05-25 16:28 | Diagnostic Imaging Report ---
Indication: Neck pain Technique: MRI examination of the cervical spine was performed in a 1.5 Tonia magnet. Sequences obtained include sagittal and axial T1 and T2 fast spin echo, and sagittal STIR. Gadolinium-enhanced T1 sequences also performed. Comparison: none Findings: The study is nondiagnostic because of motion. There is magnetic susceptibility artifact present at C6-7 from hardware. Evaluation of the spinal canal and spinal cord very limited on this exam. Significant pathology is not excludable. IMPRESSION: Nondiagnostic exam due to motion. Suggest repeat when the patient is able.
--- NOTE | 2018-05-25 18:45 | Infectious Diseases Prog Note ---
Assessment/Plan Assessment/Plan A: The patient is a 52-year-old female with a Facial cellulitis due to small upper lip abscess (most likely due to Staphylococcus) improving Neck Wnd Cx : Staph A ( Colonizer) Afebrile. Normal white blood cells. COPD. History of neck surgery, anterior approach neck discectomy. History of aortic bicuspid valve replacement. Obesity. History of diabetes. History of cholecystectomy. History of hysterectomy. History of left knee surgery. PLAN: Cont intravenous daptomycin d# 3 (allergy to vancomycin and DDI : Zyvox) Sp Zosyn d# 1 Monitor CBC and BMP Monitor the patient's clinical improvement. Monitor blood culture. may need I/D if abscess progresses Subjective Allergies: Coded Allergies: VANCOMYCIN (Verified Allergy, Intermediate, Itching, 05/23/18) ADHESIVE TAPE (Verified Allergy, Unknown, 05/22/18) CODEINE (Verified Allergy, Unknown, 05/22/18) LEVOFLOXACIN (Verified Allergy, Unknown, 05/22/18) MORPHINE (Verified Allergy, Unknown, 05/22/18) Subjective Afebrile Objective Vital Signs Last 24 Hour Vital Signs Date Time Temp Pulse Resp B/P (MAP) Pulse Ox O2 Delivery O2 Flow Rate FiO2 05/25/18 17:33 102 111/76 05/25/18 16:00 98.1 102 18 111/76 (88) 94 05/25/18 12:00 98.1 88 20 106/58 (74) 97 05/25/18 12:00 98 05/25/18 09:31 98 Room Air 21 05/25/18 09:31 Room Air 21 05/25/18 09:30 100 20 98 Room Air 21 05/25/18 09:28 101 20 98 Room Air 21 05/25/18 09:00 Room Air 05/25/18 08:13 100 112/54 05/25/18 08:00 106 05/25/18 07:55 98.2 100 19 112/54 (73) 96 05/25/18 04:00 90 05/25/18 04:00 98.3 92 18 108/70 (83) 94 05/25/18 00:00 90 05/25/18 00:00 98.8 90 19 112/66 (81) 95 05/24/18 21:00 Room Air 05/24/18 20:56 100.5 05/24/18 20:00 113 05/24/18 20:00 100.5 105 19 125/77 (93) 99 05/24/18 19:12 99 Nasal Cannula 2.0 28 05/24/18 19:12 Nasal Cannula 2.0 28 05/24/18 19:11 Nasal Cannula 2.0 28 05/24/18 19:11 Nasal Cannula 2.0 28 Height (Feet): 5 Height (Inches): 3.00 Weight (Pounds): 232 HEENT: anicteric Respiratory/Chest: no respiratory distress Cardiovascular: no gallop/murmur Abdomen: no organomegaly Microbiology Date/Time Source Procedure Growth Status 05/22/18 20:10 Nasal Nares MRSA Culture - Final Staphylococcus Aureus - Mrsa Complete 05/23/18 15:31 Neck Gram Stain - Final Complete 05/23/18 15:31 Wound Culture - Final Staphylococcus Aureus - Mrsa Complete 05/22/18 20:10 Rectum VRE Culture - Final NO VANCOMYCIN RESISTANT ENTEROCOCCUS ... Complete 05/22/18 20:10 Rectum - Final NO CARBAPENEM-RESISTANT ENTEROBACTERI... Complete Current Medications Medications (Trade) Dose Ordered Sig/Yessica Route PRN Reason Start Time Stop Time Status Last Admin Dose Admin Acetaminophen (Tylenol) 650 mg Q6H PRN ORAL Mild Pain/Temp > 100.5 05/24/18 18:44 06/23/18 18:43 05/24/18 19:48 Acetaminophen/ Hydrocodone Bitart ([place] 10/325) 1 tab Q4H PRN ORAL Severe Pain (Pain Scale 7-10) 05/24/18 18:45 05/29/18 18:44 05/25/18 17:34 Budesonide/ Formoterol Fumarate (Symbicort 160/ 4.5) 2 puff BID INH 05/25/18 09:00 06/21/18 19:59 05/25/18 09:28 Carvedilol (Coreg) 6.25 mg BIDPC ORAL 05/25/18 09:00 06/22/18 08:59 05/25/18 17:33 Daptomycin 400 mg/ Sodium Chloride 55 ml @ 100 mls/hr Q24H IV 05/24/18 19:00 05/31/18 18:59 05/24/18 19:37 Diphenhydramine HCl (Benadryl) 50 mg Q6H PRN ORAL Itching 05/24/18 18:44 06/23/18 18:43 05/24/18 20:06 Famotidine (Pepcid) 20 mg Q24H ORAL 05/24/18 22:00 06/22/18 21:59 05/24/18 22:23 Gabapentin (Neurontin) 600 mg FOUR TIMES A DAY ORAL 05/24/18 21:00 06/21/18 17:59 05/25/18 17:34 Heparin Sodium (Porcine) (Heparin 5000 units/ml) 5,000 units EVERY 12 HOURS SUBQ 05/24/18 21:00 06/21/18 20:59 05/25/18 08:15 Levetiracetam (Keppra) 1,000 mg Q12HR ORAL 05/24/18 21:00 06/23/18 20:59 05/25/18 08:11 Lorazepam (Ativan 2mg/ml 1ml) 1 mg Q5M PRN IV For seizure 05/25/18 12:51 06/01/18 12:50 05/25/18 12:56 Montelukast Sodium (Singulair) 10 mg BEDTIME ORAL 05/24/18 21:00 06/21/18 20:59 05/24/18 21:05 Pantoprazole (Protonix) 40 mg DAILY ORAL 05/25/18 09:00 06/22/18 08:59 05/25/18 08:12 Sertraline HCl (Zoloft) 50 mg DAILY ORAL 05/25/18 09:00 06/22/18 08:59 05/25/18 08:11 Tramadol HCl (Ultram) 50 mg Q6H PRN ORAL Moderate Pain (Pain Scale 4-6) 05/24/18 18:46 05/29/18 18:45 Parviz So MD May 25, 2018 18:45
[2018-05-25 20:00] VITALS: BP 103/55
[2018-05-25] MEDS: Montelukast 10mg tablet ORAL SCH (20:13)
[2018-05-25] MEDS: DAPTOmycin 400 MG in NS 55 ML IV SCH (20:13)
[2018-05-26] VITALS: BP 122/72
[2018-05-26] MEDS: HYDROcodone/Acetamin 10/325 tab ORAL PRN ×3 (03:20→20:20)
[2018-05-26 04:00] VITALS: BP 109/72
[2018-05-26 07:41] LABS: BASOPHILS % (AUTO) 0.8 % (0.0-2.0); EOSINOPHILS % (AUTO) 6.8 % (0.0-3.0); HEMATOCRIT 37.8 % (37.0-47.0); HEMOGLOBIN 12.5 G/DL (12.0-16.0); LYMPHOCYTES % (AUTO) 43.5 % (20.0-45.0); MEAN CORPUSCULAR VOLUME 82 FL (80-99); MONOCYTES % (AUTO) 7.2 % (1.0-10.0); NEUTROPHILS % (AUTO) 41.7 % (45.0-75.0); PLATELET COUNT 284 K/UL (150-450); RED BLOOD COUNT 4.61 M/UL (4.20-5.40); RED CELL DISTRIBUTION WIDTH 14.3 % (11.6-14.8); WHITE BLOOD COUNT 6.3 K/UL (4.8-10.8)
[2018-05-26] MEDS: LORazepam Inj 2mg/ml 1ml IV PRN ×4 (07:59→10:39)
[2018-05-26 08:00] VITALS: BP 108/71
[2018-05-26 08:09] LABS: ALANINE AMINOTRANSFERASE 18 U/L (12-78); ALBUMIN 3.2 G/DL (3.4-5.0); ALBUMIN/GLOBULIN RATIO 0.7 (1.0-2.7); ALKALINE PHOSPHATASE 78 U/L (46-116); ANION GAP 9 mmol/L (5-15); ASPARTATE AMINO TRANSFERASE 16 U/L (15-37); BILIRUBIN,TOTAL 0.3 MG/DL (0.2-1.0); BLOOD UREA NITROGEN 13 mg/dL (7-18); CALCIUM 9.1 MG/DL (8.5-10.1); CARBON DIOXIDE 27 MMOL/L (21-32); CHLORIDE 103 MMOL/L (98-107); CREATININE 0.8 MG/DL (0.55-1.30); POTASSIUM 3.8 MMOL/L (3.5-5.1); SODIUM 139 MMOL/L (136-145)
[2018-05-26] MEDS: Sertraline 50mg tab ORAL SCH (09:22)
[2018-05-26] MEDS: Carvedilol 6.25mg Tab ORAL SCH ×2 (09:23→18:00)
[2018-05-26] MEDS: Heparin 5000 units/ml inj SUBQ SCH ×2 (09:25→20:25)
[2018-05-26 12:00] VITALS: BP 104/70
[2018-05-26 16:00] VITALS: BP 97/69
--- NOTE | 2018-05-26 16:17 | Cardiology Report ---
APPROVED REPORT EKG Measurement Heart [id number] Sinus tachycardia Nonspecific ST and T wave abnormality Abnormal ECG
[2018-05-26 20:00] VITALS: BP 137/84
--- NOTE | 2018-05-26 20:13 | General Progress Note ---
Assessment/Plan Status Narrative facioal swelling cellulit s? becioming an abcess will get surgery to look at her nad follow anmtibiotic and follow closley eeg perliminary rnhugh unable to ge marquis to see her willfollow Subjective Date patient seen: May 26, 2018 Time patient seen: 20:11 Constitutional: Reports: no symptoms HEENT: Reports: no symptoms Allergies: Coded Allergies: VANCOMYCIN (Verified Allergy, Intermediate, Itching, 05/23/18) ADHESIVE TAPE (Verified Allergy, Unknown, 05/22/18) CODEINE (Verified Allergy, Unknown, 05/22/18) LEVOFLOXACIN (Verified Allergy, Unknown, 05/22/18) MORPHINE (Verified Allergy, Unknown, 05/22/18) Subjective patient had seizure no fever no chills facical swelling is less no palpitation Objective Last 24 Hour Vital Signs Date Time Temp Pulse Resp B/P (MAP) Pulse Ox O2 Delivery O2 Flow Rate FiO2 05/26/18 20:05 95 Room Air 21 05/26/18 20:05 Room Air 21 05/26/18 20:04 112 20 95 Room Air 21 05/26/18 20:03 112 18 95 Room Air 21 05/26/18 18:00 95 97/69 05/26/18 16:00 98.1 95 18 97/69 (78) 95 05/26/18 12:00 98 05/26/18 12:00 98.4 107 18 104/70 (81) 95 05/26/18 09:23 103 108/71 05/26/18 09:03 Room Air 05/26/18 09:03 Room Air 21 05/26/18 09:03 103 18 96 Room Air 21 05/26/18 09:03 96 Room Air 05/26/18 09:00 Room Air 05/26/18 08:00 98 05/26/18 08:00 98.0 103 18 108/71 (83) 95 05/26/18 04:00 96 05/26/18 04:00 98.5 88 20 109/72 (84) 92 05/26/18 00:00 92 05/26/18 00:00 98.5 97 20 122/72 (89) 96 05/25/18 21:00 Room Air Intake and Output 05/25/18 05/26/18 19:00 07:00 Intake Total 900 ml Balance 900 ml Intake Oral 900 ml # Voids 2 Laboratory Tests 05/26/18 07:10: White Blood Count 6.3, Red Blood Count 4.61, Hemoglobin 12.5, Hematocrit 37.8, Mean Corpuscular Volume 82, Mean Corpuscular Hemoglobin 27.1, Mean Corpuscular Hemoglobin Concent 33.0, Red Cell Distribution Width 14.3, Platelet Count 284, Mean Platelet Volume 7.2, Neutrophils (%) (Auto) 41.7L, Lymphocytes (%) (Auto) 43.5, Monocytes (%) (Auto) 7.2, Eosinophils (%) (Auto) 6.8H, Basophils (%) (Auto ) 0.8, Sodium Level 139, Potassium Level 3.8, Chloride Level 103, Carbon Dioxide Level 27, Anion Gap 9, Blood Urea Nitrogen 13, Creatinine 0.8, Estimat Glomerular Filtration Rate > 60, Glucose Level 118H, Calcium Level 9.1, Total Bilirubin 0.3, Aspartate Amino Transf (AST/SGOT) 16, Alanine Aminotransferase ( ALT/SGPT) 18, Alkaline Phosphatase 78, Total Protein 8.0, Albumin 3.2L, Globulin 4.8, Albumin/Globulin Ratio 0.7L Height (Feet): 5 Height (Inches): 3.00 Weight (Pounds): 232 EENT: other - lip aswellin gis more Neck: other Respiratory/Chest: lungs clear Abdomen: non tender Extremities: other - no clubbing Objective NAD no JVD upper lip has a swelling and erythema slightrly bigger n jvd cta soft Faustino Harris MD May 26, 2018 20:13
[2018-05-26] MEDS: Clindamycin 150mg cap ORAL SCH ×2 (20:19→22:00)
--- NOTE | 2018-05-26 20:27 | Infectious Diseases Prog Note ---
Assessment/Plan Assessment/Plan A: The patient is a 52-year-old female with a Facial cellulitis due to small upper lip abscess (most likely due to Staphylococcus) improving Neck Wnd Cx : Staph A ( Colonizer) Afebrile. Normal white blood cells. COPD. History of neck surgery, anterior approach neck discectomy. History of aortic bicuspid valve replacement. Obesity. History of diabetes. History of cholecystectomy. History of hysterectomy. History of left knee surgery. PLAN: start Clinda d# 1 , DC intravenous daptomycin d# 3 (allergy to vancomycin and DDI : Zyvox) Sp Zosyn d# 1 Monitor CBC and BMP Monitor the patient's clinical improvement. Monitor blood culture. may need I/D if abscess progresses Subjective Allergies: Coded Allergies: VANCOMYCIN (Verified Allergy, Intermediate, Itching, 05/23/18) ADHESIVE TAPE (Verified Allergy, Unknown, 05/22/18) CODEINE (Verified Allergy, Unknown, 05/22/18) LEVOFLOXACIN (Verified Allergy, Unknown, 05/22/18) MORPHINE (Verified Allergy, Unknown, 05/22/18) Subjective allergy to Dapto yesterday Afebrile Objective Vital Signs Last 24 Hour Vital Signs Date Time Temp Pulse Resp B/P (MAP) Pulse Ox O2 Delivery O2 Flow Rate FiO2 05/26/18 20:05 95 Room Air 21 05/26/18 20:05 Room Air 21 05/26/18 20:04 112 20 95 Room Air 21 05/26/18 20:03 112 18 95 Room Air 21 05/26/18 18:00 95 97/69 05/26/18 16:00 98.1 95 18 97/69 (78) 95 05/26/18 12:00 98 05/26/18 12:00 98.4 107 18 104/70 (81) 95 05/26/18 09:23 103 108/71 05/26/18 09:03 Room Air 05/26/18 09:03 Room Air 21 05/26/18 09:03 103 18 96 Room Air 21 05/26/18 09:03 96 Room Air 05/26/18 09:00 Room Air 05/26/18 08:00 98 05/26/18 08:00 98.0 103 18 108/71 (83) 95 05/26/18 04:00 96 05/26/18 04:00 98.5 88 20 109/72 (84) 92 05/26/18 00:00 92 05/26/18 00:00 98.5 97 20 122/72 (89) 96 05/25/18 21:00 Room Air Height (Feet): 5 Height (Inches): 3.00 Weight (Pounds): 232 HEENT: anicteric Respiratory/Chest: no accessory muscle use Cardiovascular: regularly irregular Abdomen: no organomegaly Laboratory Tests Test 05/26/18 07:10 White Blood Count 6.3 K/UL (4.8-10.8) Red Blood Count 4.61 M/UL (4.20-5.40) Hemoglobin 12.5 G/DL (12.0-16.0) Hematocrit 37.8 % (37.0-47.0) Mean Corpuscular Volume 82 FL (80-99) Mean Corpuscular Hemoglobin 27.1 PG (27.0-31.0) Mean Corpuscular Hemoglobin Concent 33.0 G/DL (32.0-36.0) Red Cell Distribution Width 14.3 % (11.6-14.8) Platelet Count 284 K/UL (150-450) Mean Platelet Volume 7.2 FL (6.5-10.1) Neutrophils (%) (Auto) 41.7 % (45.0-75.0) L Lymphocytes (%) (Auto) 43.5 % (20.0-45.0) Monocytes (%) (Auto) 7.2 % (1.0-10.0) Eosinophils (%) (Auto) 6.8 % (0.0-3.0) H Basophils (%) (Auto) 0.8 % (0.0-2.0) Sodium Level 139 MMOL/L (136-145) Potassium Level 3.8 MMOL/L (3.5-5.1) Chloride Level 103 MMOL/L (98-107) Carbon Dioxide Level 27 MMOL/L (21-32) Anion Gap 9 mmol/L (5-15) Blood Urea Nitrogen 13 mg/dL (7-18) Creatinine 0.8 MG/DL (0.55-1.30) Estimat Glomerular Filtration Rate > 60 mL/min (>60) Glucose Level 118 MG/DL (74-106) H Calcium Level 9.1 MG/DL (8.5-10.1) Total Bilirubin 0.3 MG/DL (0.2-1.0) Aspartate Amino Transf (AST/SGOT) 16 U/L (15-37) Alanine Aminotransferase (ALT/SGPT) 18 U/L (12-78) Alkaline Phosphatase 78 U/L (46-116) Total Protein 8.0 G/DL (6.4-8.2) Albumin 3.2 G/DL (3.4-5.0) L Globulin 4.8 g/dL Albumin/Globulin Ratio 0.7 (1.0-2.7) L Current Medications Medications (Trade) Dose Ordered Sig/Yessica Route PRN Reason Start Time Stop Time Status Last Admin Dose Admin Acetaminophen (Tylenol) 650 mg Q6H PRN ORAL Mild Pain/Temp > 100.5 05/24/18 18:44 06/23/18 18:43 05/24/18 19:48 Acetaminophen/ Hydrocodone Bitart ([place] 10/325) 1 tab Q4H PRN ORAL Severe Pain (Pain Scale 7-10) 05/24/18 18:45 05/29/18 18:44 05/26/18 11:33 Budesonide/ Formoterol Fumarate (Symbicort 160/ 4.5) 2 puff BID INH 05/25/18 09:00 06/21/18 19:59 05/26/18 20:03 Carvedilol (Coreg) 6.25 mg BIDPC ORAL 05/25/18 09:00 06/22/18 08:59 05/26/18 09:23 Clindamycin HCl (Cleocin) 300 mg EVERY 8 HOURS ORAL 05/26/18 20:00 06/02/18 19:59 Diazepam (Valium) 10 mg Q12HR ORAL 05/26/18 09:00 06/02/18 08:59 05/26/18 09:23 Diphenhydramine HCl (Benadryl) 50 mg Q6H PRN ORAL Itching 05/24/18 18:44 06/23/18 18:43 05/25/18 20:42 Famotidine (Pepcid) 20 mg Q24H ORAL 05/24/18 22:00 06/22/18 21:59 05/25/18 20:26 Gabapentin (Neurontin) 600 mg FOUR TIMES A DAY ORAL 05/24/18 21:00 06/21/18 17:59 05/26/18 18:12 Heparin Sodium (Porcine) (Heparin 5000 units/ml) 5,000 units EVERY 12 HOURS SUBQ 05/24/18 21:00 06/21/18 20:59 05/26/18 09:25 Levetiracetam (Keppra) 1,000 mg Q12HR ORAL 05/24/18 21:00 06/23/18 20:59 05/26/18 09:23 Lorazepam (Ativan 2mg/ml 1ml) 1 mg Q5M PRN IV For seizure 05/25/18 12:51 06/01/18 12:50 05/26/18 10:39 Montelukast Sodium (Singulair) 10 mg BEDTIME ORAL 05/24/18 21:00 06/21/18 20:59 05/25/18 20:13 Pantoprazole (Protonix) 40 mg DAILY ORAL 05/25/18 09:00 06/22/18 08:59 05/26/18 09:22 Sertraline HCl (Zoloft) 50 mg DAILY ORAL 05/25/18 09:00 06/22/18 08:59 05/26/18 09:22 Tramadol HCl (Ultram) 50 mg Q6H PRN ORAL Moderate Pain (Pain Scale 4-6) 05/24/18 18:46 05/29/18 18:45 Parviz So MD May 26, 2018 20:27
[2018-05-26] MEDS: Montelukast 10mg tablet ORAL SCH (20:32)
[2018-05-27] VITALS: BP 118/74
[2018-05-27] MEDS: HYDROcodone/Acetamin 10/325 tab ORAL PRN ×5 (02:15→21:41)
[2018-05-27 04:00] VITALS: BP 105/71
[2018-05-27] MEDS: Clindamycin 150mg cap ORAL SCH ×3 (05:59→21:34)
[2018-05-27 08:00] VITALS: BP 127/75
[2018-05-27] MEDS: Sertraline 50mg tab ORAL SCH (08:23)
[2018-05-27] MEDS: Carvedilol 6.25mg Tab ORAL SCH ×2 (08:24→17:18)
[2018-05-27] MEDS: Heparin 5000 units/ml inj SUBQ SCH ×2 (08:26→21:34)
--- NOTE | 2018-05-27 10:24 | Infectious Diseases Prog Note ---
Assessment/Plan Assessment/Plan A: The patient is a 52-year-old female with a Facial cellulitis/ upper lip abscess (most likely due to Staphylococcus) improving Neck Wnd Cx : Staph A ( Colonizer) Afebrile. Normal white blood cells. COPD. History of neck surgery, anterior approach neck discectomy. History of aortic bicuspid valve replacement. Obesity. History of diabetes. History of cholecystectomy. History of hysterectomy. History of left knee surgery. PLAN: cont Clinda d# 2 / , upon DC will cont as out pt (allergy to vancomycin and DDI : Zyvox) 05/25 SP daptomycin d# 3 Sp Zosyn d# 1 Monitor CBC and BMP Monitor the patient's clinical improvement. Monitor blood culture. may need I/D if abscess progresses Subjective Allergies: Coded Allergies: VANCOMYCIN (Verified Allergy, Intermediate, Itching, 05/23/18) ADHESIVE TAPE (Verified Allergy, Unknown, 05/22/18) CODEINE (Verified Allergy, Unknown, 05/22/18) LEVOFLOXACIN (Verified Allergy, Unknown, 05/22/18) MORPHINE (Verified Allergy, Unknown, 05/22/18) Subjective no acute event Afebrile Objective Vital Signs Last 24 Hour Vital Signs Date Time Temp Pulse Resp B/P (MAP) Pulse Ox O2 Delivery O2 Flow Rate FiO2 05/27/18 08:55 102 18 97 Room Air 05/27/18 08:55 102 18 97 Room Air 05/27/18 08:55 97.2 05/27/18 08:24 108 127/75 05/27/18 08:10 Room Air 05/27/18 08:00 97.2 108 18 127/75 (92) 94 05/27/18 07:20 Room Air 05/27/18 07:20 97 Room Air 05/27/18 04:00 98.4 96 16 105/71 (82) 96 05/27/18 00:00 97.3 107 18 118/74 (89) 93 05/27/18 00:00 108 05/26/18 21:00 Room Air 05/26/18 20:05 95 Room Air 21 05/26/18 20:05 Room Air 21 05/26/18 20:04 112 20 95 Room Air 21 05/26/18 20:03 112 18 95 Room Air 21 05/26/18 20:00 97.3 107 19 137/84 (101) 93 05/26/18 20:00 114 05/26/18 18:00 95 97/69 05/26/18 16:00 98.1 95 18 97/69 (78) 95 05/26/18 12:00 98 05/26/18 12:00 98.4 107 18 104/70 (81) 95 Height (Feet): 5 Height (Inches): 3.00 Weight (Pounds): 232 HEENT: mucous membranes moist Respiratory/Chest: no respiratory distress Cardiovascular: regular rhythm Abdomen: normal bowel sounds Current Medications Medications (Trade) Dose Ordered Sig/Yessica Route PRN Reason Start Time Stop Time Status Last Admin Dose Admin Acetaminophen (Tylenol) 650 mg Q6H PRN ORAL Mild Pain/Temp > 100.5 05/24/18 18:44 06/23/18 18:43 05/24/18 19:48 Acetaminophen/ Hydrocodone Bitart ([place] 10/325) 1 tab Q4H PRN ORAL Severe Pain (Pain Scale 7-10) 05/24/18 18:45 05/29/18 18:44 05/27/18 08:25 Budesonide/ Formoterol Fumarate (Symbicort 160/ 4.5) 2 puff BID INH 05/25/18 09:00 06/21/18 19:59 05/27/18 08:55 Carvedilol (Coreg) 6.25 mg BIDPC ORAL 05/25/18 09:00 06/22/18 08:59 05/27/18 08:24 Clindamycin HCl (Cleocin) 300 mg EVERY 8 HOURS ORAL 05/26/18 20:00 06/02/18 19:59 05/27/18 05:59 Diazepam (Valium) 10 mg Q12HR ORAL 05/26/18 09:00 06/02/18 08:59 05/27/18 08:23 Diphenhydramine HCl (Benadryl) 50 mg Q6H PRN ORAL Itching 05/24/18 18:44 06/23/18 18:43 05/25/18 20:42 Famotidine (Pepcid) 20 mg Q24H ORAL 05/24/18 22:00 06/22/18 21:59 05/26/18 20:32 Gabapentin (Neurontin) 600 mg FOUR TIMES A DAY ORAL 05/24/18 21:00 06/21/18 17:59 05/27/18 08:24 Heparin Sodium (Porcine) (Heparin 5000 units/ml) 5,000 units EVERY 12 HOURS SUBQ 05/24/18 21:00 06/21/18 20:59 05/27/18 08:26 Levetiracetam (Keppra) 1,000 mg Q12HR ORAL 05/24/18 21:00 06/23/18 20:59 05/27/18 08:24 Lorazepam (Ativan 2mg/ml 1ml) 1 mg Q5M PRN IV For seizure 05/25/18 12:51 06/01/18 12:50 05/26/18 10:39 Montelukast Sodium (Singulair) 10 mg BEDTIME ORAL 05/24/18 21:00 06/21/18 20:59 05/26/18 20:32 Pantoprazole (Protonix) 40 mg DAILY ORAL 05/25/18 09:00 06/22/18 08:59 05/27/18 08:30 Sertraline HCl (Zoloft) 50 mg DAILY ORAL 05/25/18 09:00 06/22/18 08:59 05/27/18 08:23 Tramadol HCl (Ultram) 50 mg Q6H PRN ORAL Moderate Pain (Pain Scale 4-6) 05/24/18 18:46 05/29/18 18:45 Parviz So MD May 27, 2018 10:24
[2018-05-27 12:00] VITALS: BP 108/75
--- NOTE | 2018-05-27 13:45 | Diagnostic Imaging Report ---
EXAM: CT Cervical Spine Without Intravenous Contrast CLINICAL HISTORY: Seizures TECHNIQUE: Axial computed tomography images of the cervical spine without intravenous contrast. CTDI is 95 mGy and DLP is 948 mGy-cm. One or more of the following dose reduction techniques were used: automated exposure control, adjustment of the mA and/or kV according to patient size, use of iterative reconstruction technique. COMPARISON: No relevant prior studies available. FINDINGS: Vertebrae: Cervical vertebral body heights are preserved without evidence of acute fracture or malalignment. Atlantodens interval remains within normal limits. Discs/spinal canal/neural foramina: Postsurgical changes at C6-7 with a radiodense intervertebral disc cage. Mild degenerative cervical spondylosis with disc space loss, facet and uncovertebral hypertrophy, and endplate osteophytes, most prominent at C5-6. Associated moderate right-sided bony neural foraminal narrowing at C5-6 and moderate bilateral bony neural foraminal narrowing at C6-7. Soft tissues: Unremarkable. IMPRESSION: 1. No evidence of acute cervical spine fracture or malalignment. 2. Mild degenerative cervical spondylosis, most prominent at C5-6. Associated moderate right-sided bony neural foraminal narrowing at C5-6 and moderate bilateral bony neural foraminal narrowing at C6-7. 3. Postsurgical changes with an intravertebral disc cage at C6-7
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
--- NOTE | 2018-05-27 14:42 | Pre-Procedure Note/Attestation ---
Pre-Procedure Note/Attestation Complete Prior to Procedure Planned Procedure: not applicable Procedure Narrative: Incision and drainage of facial abscess Indications for Procedure Pre-Operative Diagnosis: facial abscess Attestation I attest that I discussed the nature of the procedure; its benefits; risks and complications; and alternatives (and the risks and benefits of such alternatives ), prior to the procedure, with the patient (or the patient's legal accounts payable representative). I attest that, if there was a reasonable possibility of needing a blood transfusion, the patient (or the patient's legal accounts payable representative) was given the [facility] standardized written summary, pursuant to the [place] Blood Safety Act ([place] Health and Safety Code # 1645, as amended). I attest that I re-evaluated the patient just prior to the surgery and that there has been no change in the patient's H&P, except as documented below: Andrew Guerra May 27, 2018 14:42
[2018-05-27] MEDS ORDERED: Lidocaine 1% 10mg/ml/Epi 0.005mg/ml 30ml vial INJ SCH (14:45)
[2018-05-27 16:00] VITALS: BP 109/73
[2018-05-27 20:00] VITALS: BP 107/66
--- NOTE | 2018-05-27 20:27 | General Progress Note ---
Assessment/Plan Status Narrative MRSA infectin of the face s/p id and will do antibiotic per id adn follow Subjective Date patient seen: May 27, 2018 Time patient seen: 20:25 Allergies: Coded Allergies: VANCOMYCIN (Verified Allergy, Intermediate, Itching, 05/23/18) ADHESIVE TAPE (Verified Allergy, Unknown, 05/22/18) CODEINE (Verified Allergy, Unknown, 05/22/18) LEVOFLOXACIN (Verified Allergy, Unknown, 05/22/18) MORPHINE (Verified Allergy, Unknown, 05/22/18) Subjective s/p I an dD of the facial abcess doing better Objective Last 24 Hour Vital Signs Date Time Temp Pulse Resp B/P (MAP) Pulse Ox O2 Delivery O2 Flow Rate FiO2 05/27/18 17:48 98.8 05/27/18 17:18 103 109/73 05/27/18 16:09 95 05/27/18 16:00 98.8 103 20 109/73 (85) 96 05/27/18 12:00 98.1 99 20 108/75 (86) 95 05/27/18 11:57 96 05/27/18 08:55 102 18 97 Room Air 21 05/27/18 08:55 102 18 97 Room Air 21 05/27/18 08:24 108 127/75 05/27/18 08:10 Room Air 05/27/18 08:00 97.2 108 18 127/75 (92) 94 05/27/18 07:53 107 05/27/18 07:20 Room Air 21 05/27/18 07:20 97 Room Air 21 05/27/18 04:00 98.4 96 16 105/71 (82) 96 05/27/18 00:00 97.3 107 18 118/74 (89) 93 05/27/18 00:00 108 05/26/18 21:00 Room Air Intake and Output 05/26/18 05/27/18 19:00 07:00 Intake Total 360 ml Balance 360 ml Intake Oral 360 ml # Voids 3 2 Height (Feet): 5 Height (Inches): 3.00 Weight (Pounds): 232 General Appearance: WD/WN EENT: other - has upper lip area wound packed Cardiovascular: normal rate, regular rhythm, no JVD Respiratory/Chest: lungs clear Abdomen: soft Objective NAD no JVD upper lip has a swelling and erythema slightrly bigger n jvd cta soft Faustino Harris MD May 27, 2018 20:27
[2018-05-27] MEDS: Montelukast 10mg tablet ORAL SCH (21:33)
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
[2018-05-27] MEDS: LORazepam Inj 2mg/ml 1ml IV PRN (23:34)
[2018-05-28] VITALS: BP 146/83
[2018-05-28 04:00] VITALS: BP 115/80
[2018-05-28] MEDS: HYDROcodone/Acetamin 10/325 tab ORAL PRN ×3 (04:51→19:52)
[2018-05-28] MEDS: Clindamycin 150mg cap ORAL SCH ×3 (05:49→21:18)
[2018-05-28 08:00] VITALS: BP 136/89
[2018-05-28] MEDS: Sertraline 50mg tab ORAL SCH (08:29)
[2018-05-28] MEDS: Heparin 5000 units/ml inj SUBQ SCH ×2 (08:31→21:23)
[2018-05-28] MEDS: Carvedilol 6.25mg Tab ORAL SCH ×2 (08:34→18:13)
[2018-05-28] MEDS: LORazepam Inj 2mg/ml 1ml IV PRN (09:14)
[2018-05-28 12:00] VITALS: BP 109/69
--- NOTE | 2018-05-28 13:24 | General Progress Note ---
Assessment/Plan Status Narrative mrsa abcess and cellulit s s/p i and d doing better dc home in am. Subjective Date patient seen: May 28, 2018 Time patient seen: 13:24 Constitutional: Reports: no symptoms HEENT: Reports: no symptoms Cardiovascular: Reports: no symptoms Allergies: Coded Allergies: VANCOMYCIN (Verified Allergy, Intermediate, Itching, 05/23/18) ADHESIVE TAPE (Verified Allergy, Unknown, 05/22/18) CODEINE (Verified Allergy, Unknown, 05/22/18) LEVOFLOXACIN (Verified Allergy, Unknown, 05/22/18) MORPHINE (Verified Allergy, Unknown, 05/22/18) Subjective s/p I an dD of the facial abcess doing better Objective Last 24 Hour Vital Signs Date Time Temp Pulse Resp B/P (MAP) Pulse Ox O2 Delivery O2 Flow Rate FiO2 05/28/18 12:00 97.2 96 22 109/69 (82) 05/28/18 09:08 97.9 05/28/18 08:39 Room Air 21 05/28/18 08:37 97 18 96 Room Air 21 05/28/18 08:34 94 136/89 05/28/18 08:10 Room Air 05/28/18 08:00 97.9 94 20 136/89 (105) 95 05/28/18 07:57 95 05/28/18 04:00 97.4 87 20 115/80 (92) 98 05/28/18 04:00 97 05/28/18 00:00 96 05/28/18 00:00 98.4 98 20 146/83 (104) 95 05/27/18 21:00 Room Air 05/27/18 20:33 98 18 95 Room Air 21 05/27/18 20:32 98 18 95 Room Air 21 05/27/18 20:00 94 05/27/18 20:00 98.0 99 20 107/66 (80) 95 05/27/18 17:18 103 109/73 05/27/18 16:09 95 05/27/18 16:00 98.8 103 20 109/73 (85) 96 Intake and Output 05/27/18 05/28/18 19:00 07:00 Intake Total 1840 ml Balance 1840 ml Intake Oral 1840 ml # Voids 4 # Bowel Movements 1 Height (Feet): 5 Height (Inches): 3.00 Weight (Pounds): 232 General Appearance: WD/WN Neck: non-tender Cardiovascular: regular rhythm, no JVD Respiratory/Chest: lungs clear Abdomen: non tender, soft Objective NAD no JVD upper lip has a swelling and erythema slightrly bigger n jvd cta soft Faustino Harris MD May 28, 2018 13:24
--- NOTE | 2018-05-28 14:16 | General Surgery Progress Note ---
General Surgery-Progress Note Subjective Symptoms: improved, tolerating diet, passing flatus, BM Additional Comments doing well. no acute events. dressings removed and states feels better. still pain but improved. no n/v/f/c. no longer with drainage. Objective Last 24 Hour Vital Signs Date Time Temp Pulse Resp B/P (MAP) Pulse Ox O2 Delivery O2 Flow Rate FiO2 05/28/18 12:00 97.2 96 22 109/69 (82) 05/28/18 11:44 106 05/28/18 09:08 97.9 05/28/18 08:39 Room Air 21 05/28/18 08:37 97 18 96 Room Air 21 05/28/18 08:34 94 136/89 05/28/18 08:10 Room Air 05/28/18 08:00 97.9 94 20 136/89 (105) 95 05/28/18 07:57 95 05/28/18 04:00 97.4 87 20 115/80 (92) 98 05/28/18 04:00 97 05/28/18 00:00 96 05/28/18 00:00 98.4 98 20 146/83 (104) 95 05/27/18 21:00 Room Air 05/27/18 20:33 98 18 95 Room Air 21 05/27/18 20:32 98 18 95 Room Air 21 05/27/18 20:00 94 05/27/18 20:00 98.0 99 20 107/66 (80) 95 05/27/18 17:18 103 109/73 05/27/18 16:09 95 05/27/18 16:00 98.8 103 20 109/73 (85) 96 I&O Intake and Output 05/27/18 05/28/18 18:59 06:59 Intake Total 1840 ml Balance 1840 ml Intake Oral 1840 ml # Voids 4 # Bowel Movements 1 Dressing: dry Wound: clean Drains: none Cardiovascular: RSR Respiratory: clear Abdomen: soft, flat, non-tender, present bowel sounds Extremities: no tenderness, no cyanosis Plan Problems: (1) Facial cellulitis (2) Cellulitis and abscess of face Assessment & Plan: Facial cellulitis for 1 week which has since developed abscess that will require drainage. Just right of the philtrum there is an area of cellulitis with epidermal breakdown 1mm ulceration with drainage of purulent fluid. edema, erythema, and tenderness from philtrum to anterior nares on the right. orapharynx benign. Discussed findings and care plan with patient. States that it has been worsening and pus is new over past day or so. Incision and drainage recommended. Consent obtained from patient after risks, benefits, and alternatives discussed in detail See procedure note s/p I&D facial abscess; improved. wound dry this AM without drainage still with cellulitis periwound but improving. cultures MRSA packing and dressings removed. -keep wound open to air; apply honeygel daily and prn -okay for diet -okay for activity -cont abx will follow with recs thank you for allowing me to participate in patients care. Andrew Guerra May 28, 2018 14:16
[2018-05-28 16:00] VITALS: BP 123/78
--- NOTE | 2018-05-28 16:30 | Electroencephalogram ---
DATE OF PROCEDURE: 05/24/2018 REQUESTING PHYSICIAN: Faustino Harris M.D. READING PHYSICIAN: Sy Hairston M.D. PROCEDURE PERFORMED: Electroencephalogram. HISTORY: This EEG was performed on a 52-year-old lady, who recently had neck surgery, and also has had facial cellulitis. She apparently had a seizure and thus this EEG was performed to evaluate the patient for the type of seizure disorder. TECHNICAL NOTE: This EEG was performed on [employer] with electrodes placed on the scalp according to the International 10-20 system. [id number] and [id number] montages were used. The EEG was technically satisfactory and was performed in the awake, drowsy, and sleep states. OBSERVATIONS: In the best awake state, the background activity consisted of 9.5-10.5 Hz, posteriorly predominant, well-developed, alpha waveforms, which attenuated on eye opening. Drowsiness was characterized by dissolution of the alpha rhythm and the appearance of slow frequencies in the 5-6 Hz theta range. Stage II sleep was characterized by further slowing of the background in the delta and theta range, the presence of vertex waves, and 14 Hz sleep spindles. Photic stimulation was performed at various different frequencies and produced no abnormalities. No focal abnormalities or epileptiform discharges were seen. IMPRESSION: Normal awake, drowsy, and stage II sleep EEG. COMMENT: Normal EEG does not rule out a seizure disorder. Sy Hairston M.D., M.S.P.H. DR: LIYAH JOB#: [id number] [facility]
[2018-05-28 20:00] VITALS: BP 113/82
[2018-05-28] MEDS: Montelukast 10mg tablet ORAL SCH (21:18)
[2018-05-29] VITALS: BP 116/79
[2018-05-29] MEDS: HYDROcodone/Acetamin 10/325 tab ORAL PRN ×3 (01:35→13:20)
[2018-05-29] MEDS: LORazepam Inj 2mg/ml 1ml IV PRN ×2 (03:56→10:55)
[2018-05-29 04:00] VITALS: BP 111/70
[2018-05-29] MEDS: Clindamycin 150mg cap ORAL SCH ×2 (05:58→13:20)
[2018-05-29 07:58] VITALS: BP 103/81
[2018-05-29] MEDS: Sertraline 50mg tab ORAL SCH (08:08)
[2018-05-29] MEDS: Carvedilol 6.25mg Tab ORAL SCH ×2 (08:09→18:54)
[2018-05-29] MEDS: Heparin 5000 units/ml inj SUBQ SCH ×2 (08:12→21:00)
--- NOTE | 2018-05-29 10:08 | Infectious Diseases Prog Note ---
Assessment/Plan Assessment/Plan A: The patient is a 52-year-old female with a Facial cellulitis/ upper lip abscess (most likely due to Staphylococcus) improving 05/27 SP I&D facial abscess Neck Wnd Cx : Staph A (Colonizer) Afebrile. Normal white blood cells. COPD. History of neck surgery, anterior approach neck discectomy. History of aortic bicuspid valve replacement. Obesity. History of diabetes. History of cholecystectomy. History of hysterectomy. History of left knee surgery. PLAN: cont Clinda d# 4 / , upon DC will cont as out pt (Rx in chart) (allergy to vancomycin and DDI : Zyvox) 05/25 SP daptomycin d# 3 Sp Zosyn d# 1 Monitor CBC and BMP Monitor the patient's clinical improvement. Monitor blood culture. may need I/D if abscess progresses Subjective Allergies: Coded Allergies: VANCOMYCIN (Verified Allergy, Intermediate, Itching, 05/23/18) ADHESIVE TAPE (Verified Allergy, Unknown, 05/22/18) CODEINE (Verified Allergy, Unknown, 05/22/18) LEVOFLOXACIN (Verified Allergy, Unknown, 05/22/18) MORPHINE (Verified Allergy, Unknown, 05/22/18) Subjective SP I/D of facial abscess Objective Vital Signs Last 24 Hour Vital Signs Date Time Temp Pulse Resp B/P (MAP) Pulse Ox O2 Delivery O2 Flow Rate FiO2 05/29/18 09:47 Room Air 05/29/18 09:47 Room Air 05/29/18 09:00 Room Air 05/29/18 08:09 97 103/81 05/29/18 08:00 97 05/29/18 07:58 98.1 97 18 103/81 (88) 94 05/29/18 04:00 82 05/29/18 04:00 97.9 96 19 111/70 (84) 95 05/29/18 00:00 96 05/29/18 00:00 97.8 88 19 116/79 (91) 95 05/28/18 21:00 Room Air 05/28/18 20:00 129 05/28/18 20:00 98.1 91 20 113/82 (92) 95 05/28/18 19:52 Room Air 21 05/28/18 19:51 Room Air 21 05/28/18 18:13 95 123/78 05/28/18 16:00 95 05/28/18 16:00 97.3 95 18 123/78 (93) 95 05/28/18 12:00 97.2 96 22 109/69 (82) 05/28/18 11:44 106 Height (Feet): 5 Height (Inches): 3.00 Weight (Pounds): 232 HEENT: anicteric Respiratory/Chest: no respiratory distress Cardiovascular: regularly irregular Abdomen: no organomegaly Current Medications Medications (Trade) Dose Ordered Sig/Yessica Route PRN Reason Start Time Stop Time Status Last Admin Dose Admin Acetaminophen (Tylenol) 650 mg Q6H PRN ORAL Mild Pain/Temp > 100.5 05/24/18 18:44 06/23/18 18:43 05/24/18 19:48 Acetaminophen/ Hydrocodone Bitart ([place] 10/325) 1 tab Q4H PRN ORAL Severe Pain (Pain Scale 7-10) 05/24/18 18:45 05/29/18 18:44 05/29/18 06:16 Budesonide/ Formoterol Fumarate (Symbicort 160/ 4.5) 2 puff BID INH 05/25/18 09:00 06/21/18 19:59 05/27/18 20:32 Carvedilol (Coreg) 6.25 mg BIDPC ORAL 05/25/18 09:00 06/22/18 08:59 05/29/18 08:09 Clindamycin HCl (Cleocin) 300 mg EVERY 8 HOURS ORAL 05/26/18 20:00 06/02/18 19:59 05/29/18 05:58 Diazepam (Valium) 10 mg Q12HR ORAL 05/26/18 09:00 06/02/18 08:59 05/29/18 08:08 Diphenhydramine HCl (Benadryl) 50 mg Q6H PRN ORAL Itching 05/24/18 18:44 06/23/18 18:43 05/25/18 20:42 Famotidine (Pepcid) 20 mg Q24H ORAL 05/24/18 22:00 06/22/18 21:59 05/28/18 21:17 Gabapentin (Neurontin) 600 mg FOUR TIMES A DAY ORAL 05/24/18 21:00 06/21/18 17:59 05/29/18 08:09 Heparin Sodium (Porcine) (Heparin 5000 units/ml) 5,000 units EVERY 12 HOURS SUBQ 05/24/18 21:00 06/21/18 20:59 05/29/18 08:12 Levetiracetam (Keppra) 1,000 mg Q12HR ORAL 05/24/18 21:00 06/23/18 20:59 05/29/18 08:09 Lorazepam (Ativan 2mg/ml 1ml) 1 mg Q5M PRN IV For seizure 05/25/18 12:51 06/01/18 12:50 05/29/18 03:56 Montelukast Sodium (Singulair) 10 mg BEDTIME ORAL 05/24/18 21:00 06/21/18 20:59 05/28/18 21:18 Ondansetron HCl (Zofran) 4 mg Q6H PRN IVP Nausea & Vomiting 05/28/18 14:45 06/27/18 14:44 Pantoprazole (Protonix) 40 mg DAILY ORAL 05/25/18 09:00 06/22/18 08:59 05/29/18 08:08 Sertraline HCl (Zoloft) 50 mg DAILY ORAL 05/25/18 09:00 06/22/18 08:59 05/29/18 08:08 Tramadol HCl (Ultram) 50 mg Q6H PRN ORAL Moderate Pain (Pain Scale 4-6) 05/24/18 18:46 05/29/18 18:45 Parviz So MD May 29, 2018 10:08
[2018-05-29 12:00] VITALS: BP 132/90
[2018-05-29 16:00] VITALS: BP 124/74
--- NOTE | 2018-05-29 16:34 | General Surgery Progress Note ---
General Surgery-Progress Note Subjective Symptoms: improved Additional Comments pain and swelling improving. no n/v/f/c. no drainage. tolerating diet. Objective Last 24 Hour Vital Signs Date Time Temp Pulse Resp B/P (MAP) Pulse Ox O2 Delivery O2 Flow Rate FiO2 05/29/18 12:00 97.8 96 18 132/90 (104) 96 05/29/18 12:00 87 05/29/18 09:47 Room Air 05/29/18 09:47 Room Air 05/29/18 09:00 Room Air 05/29/18 08:09 97 103/81 05/29/18 08:00 97 05/29/18 07:58 98.1 97 18 103/81 (88) 94 05/29/18 04:00 82 05/29/18 04:00 97.9 96 19 111/70 (84) 95 05/29/18 00:00 96 05/29/18 00:00 97.8 88 19 116/79 (91) 95 05/28/18 21:00 Room Air 05/28/18 20:00 129 05/28/18 20:00 98.1 91 20 113/82 (92) 95 05/28/18 19:52 Room Air 21 05/28/18 19:51 Room Air 21 05/28/18 18:13 95 123/78 I&O Intake and Output 05/28/18 05/29/18 19:00 07:00 Intake Total 880 ml 360 ml Balance 880 ml 360 ml Intake Oral 880 ml 360 ml # Voids 6 3 Wound: clean, dry Drains: none Cardiovascular: RSR Respiratory: clear Abdomen: soft, flat, non-tender, present bowel sounds Extremities: no cyanosis Plan Problems: (1) Facial cellulitis (2) Cellulitis and abscess of face Assessment & Plan: Facial cellulitis for 1 week which has since developed abscess that will require drainage. Just right of the philtrum there is an area of cellulitis with epidermal breakdown 1mm ulceration with drainage of purulent fluid. edema, erythema, and tenderness from philtrum to anterior nares on the right. orapharynx benign. Discussed findings and care plan with patient. States that it has been worsening and pus is new over past day or so. Incision and drainage recommended. Consent obtained from patient after risks, benefits, and alternatives discussed in detail See procedure note s/p I&D facial abscess; improved. wound dry twithout drainage still with cellulitis periwound but improving. cultures MRSA -keep wound open to air; apply honeygel daily and prn -okay for diet -okay for activity -cont abx -d/c planning will follow with recs thank you for allowing me to participate in patients care. Andrew Guerra May 29, 2018 16:34
[2018-05-29] MEDS ORDERED: HYDROcodone/Acetamin 10/325 tab ORAL PRN (19:27)
[2018-05-29 20:00] VITALS: BP 105/69
[2018-05-29] MEDS: Montelukast 10mg tablet ORAL SCH (20:03)
--- NOTE | 2018-05-29 20:48 | Discharge Summary ---
Discharge Summary Discharge Summary _ disharge date 05-29 discharge diagnosis Facial cellulitis/ upper lip abscess (most likely due to Staphylococcus) improving 05/27 SP I&D facial abscess Neck Wnd Cx : Staph A (Colonizer) s/p ACDF s/p valve heart surgery pateitn was admmited with facial cellultis ct no abcess then formed abcess had i and d noted to be MRSA better now got antibiotic had allergic reaction and better on admit dc home valarie weathers one week. Faustino Harris MD May 29, 2018 20:48
== END 2018-05-29 21:30 | disposition home or self-care (01) | DRG 603 ==
LOC: EMR 15:02 → 3E 15:30 → EDBEDREQ 15:32 → 3E 17:27 → 2E 05-24 18:25
PROC: 0C903ZZ Drainage of Upper Lip, Percutaneous Approach (ICD-10-PCS; principal; 2018-05-27)
DX: L03.211 Cellulitis of face (principal); K13.0 Diseases of lips; J44.9 Chronic obstructive pulmonary disease, unspecified; Z98.1 Arthrodesis status; E66.9 Obesity, unspecified; Z90.49 Acquired absence of other specified parts of digestive tract; Z88.6 Allergy status to analgesic agent; Z88.1 Allergy status to other antibiotic agents; Z95.2 Presence of prosthetic heart valve; E11.9 Type 2 diabetes mellitus without complications; M15.9 Polyosteoarthritis, unspecified; K21.9 Gastro-esophageal reflux disease without esophagitis; Z22.322 Carrier or suspected carrier of Methicillin resistant Staphylococcus aureus
CPT/HCPCS: 36415; 70488; 72125; 72156; 80053; 80299; 83605; 85025; 87040; 87070; 87081; 87181; 87205; 93005; 93306; 94640; 94760; 95819; 96361; 96365; 96375; 99285; A9585